=== PATIENT | female | born 1940 | race African-American/Black ===

== ENCOUNTER 2017-04-01 17:57 | Emergency (ER) | payer BC, OTHER ==
[2017-04-01 18:43] VITALS: BP 134/76; PULSE 78; TEMP 98.3; BMI 22.1
--- NOTE | 2017-04-01 19:57 | PDOC ---
History of Present Illness - General History Source: Patient Exam Limitations: No Limitations - History of Present Illness Initial Comments: 04/01/17 20:11 The patient is a 76 year old female with a significant PMH of TIA (2013), COPD, urinary incontinence, rheumatoid arthritis, and anxiety who presents to the emergency department with a headache and lightheadedness s/p fall about 2-3 hours ago. The patient also notes an abrasion with associated bruising just above the bridge of her nose. She reports walking down a steep hill on her way to the bus stop when she tripped and fell, landing face forward onto the sidewalk. The patient denies any dizziness or weakness before the fall and denies any LOC. She reports she believes the fall was mechanical. The patient denies chest pain, shortness of breath, and dizziness. Denies fever, chills, nausea, vomit, diarrhea and constipation. Denies dysuria, frequency, urgency and hematuria. Allergies: Codeine, Prochlorperazine, Chlorpromazine. Latex. Past surgical history: Appendectomy. Bunionectomy. Breast augmentation. Ear plastic surgery. Social history: No reported cigarette, alcohol, or drug use. PCP: None reported. <Paddy Camacho - Last Filed: 04/01/17 20:11> - General History Source: Patient <AravindDarin moreno - Last Filed: 04/01/17 23:34> - General Chief Complaint: Injury Stated Complaint: FALL Time Seen by Provider: 04/01/17 19:55 Past History <Paddy Camacho - Last Filed: 04/01/17 20:11> - Past Medical History CVA: Yes (TIA) COPD: Yes DVT: No Disorders: Yes (incontinence SPASTIC BLADDER) Other medical history: ARITHRITIS,HAIR LOSS - Surgical History Appendectomy: Yes - Suicide/Smoking/Psychosocial Hx Smoking History: Never smoked Have you smoked in the past 12 months: No Number of Cigarettes Smoked Daily: 0 Information on smoking cessation initiated: No Hx Alcohol Use: No Drug/Substance Use Hx: No Substance Use Type: None Hx Substance Use Treatment: No <Darin Griffith - Last Filed: 04/01/17 23:34> - Past Medical History Allergies/Adverse Reactions: Allergies Allergy/AdvReac Type Severity Reaction Status Date / Time codeine Allergy Verified 04/01/17 18:37 latex Allergy Verified 04/01/17 18:37 prochlorperazine Allergy Verified 04/01/17 18:37 [From Compazine] chlorpromazine AdvReac Verified 04/01/17 18:37 [From Thorazine] Home Medications: Ambulatory Orders Aspirin [ASA -] 81 mg PO DAILY 10/27/13 Diazepam [Valium -] 10 mg PO DAILY PRN 10/27/13 Finasteride 5 mg PO DAILY 10/27/13 Meloxicam [Mobic -] 15 mg PO DAILY 10/27/13 Tolterodine Tartrate [Detrol LA] 4 mg PO DAILY 10/27/13 Trazodone HCl [Desyrel -] 50 mg PO HS PRN 10/27/13 Valacyclovir HCl [Valtrex -] 2,000 mg PO DAILY 10/27/13 Review of Systems - Review of Systems Able to Perform ROS?: Yes Comments:: 04/01/17 20:11 CONSTITUTIONAL: Absent: fever, chills, diaphoresis, generalized weakness, malaise, loss of appetite HEENT: Absent: rhinorrhea, nasal congestion, throat pain, throat swelling, difficulty swallowing, mouth swelling, ear pain, eye pain, visual Changes CARDIOVASCULAR: Absent: chest pain, syncope, palpitations, irregular heart rate, lightheadedness , peripheral edema RESPIRATORY: Absent: cough, shortness of breath, dyspnea with exertion, orthopnea, wheezing, stridor, hemoptysis GASTROINTESTINAL: Absent: abdominal pain, abdominal distension, nausea, vomiting, diarrhea, constipation, melena, hematochezia GENITOURINARY: Absent: dysuria, frequency, urgency, hesitancy, hematuria, flank pain, genital pain MUSCULOSKELETAL: Absent: myalgia, arthralgia, joint swelling SKIN: (+) Abrasion just above bridge of nose with associated bruising on the bridge of nose. Absent: rash, itching, pallor HEMATOLOGIC/IMMUNOLOGIC: Absent: easy bleeding, easy bruising, lymphadenopathy, frequent infections ENDOCRINE: Absent: unexplained weight gain, unexplained weight loss, heat intolerance, cold intolerance NEUROLOGIC: (+) Headache. (+) Lightheadedness. Absent: focal weakness or paresthesias, dizziness, unsteady gait, seizure, mental status changes, bladder or bowel incontinence PSYCHIATRIC: Absent: anxiety, depression, suicidal or homicidal ideation, hallucinations. <Camacho,Paddy - Last Filed: 04/01/17 20:11> *Physical Exam - Vital Signs Last Vital Signs Temp Pulse Resp BP Pulse Ox 98.3 F 78 18 134/76 92 L 04/01/17 18:38 04/01/17 18:38 04/01/17 18:38 04/01/17 18:38 04/01/17 18:38 - Physical Exam Comments: 04/01/17 20:12 GENERAL: Well developed, well nourished. Awake and alert. No acute distress. HEENT: Normocephalic, atraumatic. PERRLA, EOMI. No conjunctival pallor. Sclera are non- icteric. Moist mucous membranes. Oropharynx is clear. NECK: Supple. Full ROM. No JVD. Carotid pulses 2+ and symmetric, without bruits. No thyromegaly. No lymphadenopathy. CARDIOVASCULAR: Regular rate and rhythm. No murmurs, rubs, or gallops. Distal pulses are 2+ and symmetric. PULMONARY: No evidence of respiratory distress. Lungs clear to auscultation bilaterally. No wheezing, rales or rhonchi. ABDOMINAL: Soft. Non-tender. Non-distended. No rebound or guarding. No organomegaly. Normoactive bowel sounds. MUSCULOSKELETAL Normal range of motion at all joints. No bony deformities or tenderness. No CVA tenderness. EXTREMITIES: No cyanosis. No clubbing. No edema. No calf tenderness. SKIN: (+) Abrasion on mid forehead just above bridge of nose with surrounding ecchymosis around bridge of nose. Warm and dry. Normal capillary refill. No rashes. No jaundice. NEUROLOGICAL: Alert, awake, appropriate. Cranial nerves 2-12 intact. No deficits to light touch and temperature in face, upper extremities and lower extremities. No motor deficits in the in face, upper extremities and lower extremities. Normoreflexic in the upper and lower extremities. Normal speech. Toes are downgoing bilaterally. PSYCHIATRIC: Cooperative. Good eye contact. Appropriate mood and affect. <CamachoPaddy - Last Filed: 04/01/17 20:11> - Vital Signs Last Vital Signs Temp Pulse Resp BP Pulse Ox 98.3 F 78 18 134/76 92 L 04/01/17 18:38 04/01/17 18:38 04/01/17 18:38 04/01/17 18:38 04/01/17 18:38 <Darin Griffith - Last Filed: 04/01/17 23:34> Medical Decision Making - Medical Decision Making 04/01/17 23:11 Dr. Griffith: The scribe's documentation has been prepared under my direction and personally reviewed by me in its entirery. I confirm that the note above accurately reflects all work, treatment, procedures, and medical decision making performed by me. CAT scan of head, face, and cervical spine is negative for fracture. Pt given Tetanus. Pt to be discharged. <Darin Griffith - Last Filed: 04/01/17 23:34> *DC/Admit/Observation/Transfer - Attestations Scribe Attestion: 04/01/17 20:12 Documentation prepared by Paddy Camacho, acting as medical sales associate for Darin Griffith DO. <Paddy Camacho - Last Filed: 04/01/17 20:11> - Discharge Dispostion Admit: No <Darin Griffith - Last Filed: 04/01/17 23:34> Diagnosis at time of Disposition: Facial abrasion Qualifiers: Encounter type: initial encounter Qualified Code(s): S00.81XA - Abrasion of other part of head, initial encounter Closed head injury Qualifiers: Encounter type: initial encounter Qualified Code(s): S09.90XA - Unspecified injury of head, initial encounter - Discharge Dispostion Disposition: HOME Condition at time of disposition: Stable - Patient Instructions Printed Discharge Instructions: DI for Closed Head Injury, DI for Abrasion Additional Instructions: Keep wound clean and dry. Wash soap and water. Apply bacitracin daily. Avoid direct sunlight until wound is completely healed - Post Discharge Activity Forms/Work/School Notes: Back to Work
[2017-04-01] MEDS ORDERED: TETANUS AND DIPHTHERIA TOXOID 0.5 ML DISP.SYRIN IM ONE (20:04)
[2017-04-01] MEDS ORDERED: BACITRACIN 15 GM TUBE TOPICAL OINTMENT TP ONE (23:10)
== END 2017-04-01 23:48 | disposition home or self-care (01) ==
LOC: JER 17:57
PROC: 3E0234Z Introduction of Serum, Toxoid and Vaccine into Muscle, Percutaneous Approach (ICD-10-PCS; principal; 2017-04-01)
DX: S00.31XA Abrasion of nose, initial encounter (principal); W17.89XA Other fall from one level to another, initial encounter; Y93.89 Activity, other specified; Y92.480 Sidewalk as the place of occurrence of the external cause; Y99.8 Other external cause status; J44.9 Chronic obstructive pulmonary disease, unspecified; M06.9 Rheumatoid arthritis, unspecified; N39.498 Other specified urinary incontinence; F41.9 Anxiety disorder, unspecified; Z86.73 Personal history of transient ischemic attack (TIA), and cerebral infarction without residual deficits
CPT/HCPCS: 70450-TC; 70486-TC; 72125-TC; 99282-25